=== PATIENT | male | born 1990 | race Caucasian/White ===

== ENCOUNTER 2017-01-24 17:13 | Inpatient (IN) | payer OTHER ==
--- NOTE | 2017-01-22 08:49 | BGECT ---
[f rep st] OUTPATIENT ECT Amended report DATE OF SERVICE: 01/20/[address] PL[address] OF EVALUATION: [facility]. PRESENT FOR EVALUATION: The patient, his mother and stepfather. Mother's phone number is [phone]. SOURCE OF INFORMATION: Personal interview with patient and his parents, one to one interview with patient's mother, letter of referral from patient's outpatient psychiatrist, Dr. Terry Mcdonough, clinic notes from Dr. Mcdonough dated October 16, 2015; December 14, 2015 and January 02, 2017, and a phone message from Dr. Mcdonough on January 20, 2017. TIME SPENT: 180 minutes. REASON FOR EVALUATION: Patient is a 26-year-old male with a history of schizoaffective disorder. He is referred by Dr. Mcdonough, who has treated him for the past 9 years. He is present with his mother who gives the majority of the history as the patient is somewhat disorganized and has a lot of negative perseverations especially in regard to his history. He clearly sees any discussion of his mental illness as embarrassing or negative and he resists talking about things. He is especially sensitive about psychotic symptoms, or any of his past behaviors that he might perceive as embarrassing. I am able to obtain some information after the patient leaves the evaluation at the end, when his mother is here by herself. They all repeat report that his first symptoms began approximately 9 years ago. His mother states that he was very ill at that time and had 2 long-term hospitalizations. She states that after this, he was stabilized on Clozaril and by her report "improved consistently for 8 years." Last summer, however, she states that in September of 2015, he began to decline. She states that he had a significant change in his behaviors and became impulsive and disorganized. She states that he was manic and would not sleep for days at a time. He was pressured and neurotic and demonstrated disorganized thoughts. In September and October, he left the home numerous times and she would have to drive around town looking for him. She would find him in a cataleptic state, standing in 1 position in a neighbors lawn or a park and have to bring him home. He was actively managed as an outpatient during this time, but then ultimately was hospitalized in November of 2015. At that time, he was given additional Risperdal which seemed to help and she states that he recovered largely. 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 She reports that again in October of this year, she noticed that he was again becoming somewhat elevated. She states that he was again pressured and sleeping less well. His thoughts would become disorganized and he began describing some visual misperceptions such as seeing people who were not there or having to seemingly clear his vision as if he had seen something. She states that he had become more impulsive and clingy, having to touch her frequently and needing frequent reassurances that he had not done anything wrong. She also notes that he began showering frequently and will sometimes shower twice a day for over an hour at a time. He reports hearing voices on a daily basis, but insists that "they are always good and not bad." His mother states that he does seem to attend to internal stimuli and that he will at times even make verbalizations as if he is talking to someone. She also notes that he will become paranoid at times, believing that people are watching him or that others behaviors in public are directed at him. She notes some other ideas of reference that are similar such as when he is in public, believing that others are orchestrating something against him. She states that his catatonic symptoms have come back several times where he will "get stuck" and seemed to freeze up for periods of 5-10 minutes. She states that this then gradually wears off and he is better able to function normally. In the past, he has demonstrated these similar behaviors when he decompensated a year ago. She states that at that time, he was very impulsive as mentioned above when he would leave the home, but also was disrobing and demonstrating inappropriate behaviors in public. Dr. Mcdonough's notes indicate that he did stabilize last summer over a period of about 4 months, and that he had been well until sometime between the and 17 of January, when he felt that he was noticing significant decompensation. Dr. Mcdonough had been actively adjusting his clozapine, had gotten up to his current dose of 600 mg with a serum level of almost 1000. He also added Risperdal and increased to 2 mg in combination with his Lamictal and lithium. These interventions did not curb these behaviors and they seem to be worsening. PAST PSYCHIATRIC HISTORY: Significant for seeing Dr. Mcdonough for the past 8-9 years. He has had 3 previous psychiatric hospitalizations with the last in November of 2015. He has previously tried Zyprexa, Risperdal, Depakote, Seroquel , lithium, Geodon, Invega and Lamictal. 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 CURRENT PSYCHIATRIC REVIEW OF SYSTEMS: The patient's states his sleep is currently stable with his medicines, though his mother is not convinced that he is sleeping well at all. His energy level is increased with frequent pacing and inability to sit still. He walks over 6 miles a day and states this is the only thing that helps calm him. His thoughts have been disorganized with some perseveration and repeating himself or repeating what others say to him. His mother states that he is not at baseline and that prior to the decompensation a year ago, function nearly normally. He admits to having decreased appetite and has lost 15 pounds in the past 2 weeks. His mother states that he complains of being unable to swallow at times and is unclear whether this is psychological related to anxiety or whether it is part of his "getting stuck." ALLERGIES: No known medical allergies. CURRENT MEDICATIONS: Clozaril 600 mg at h.s., Lamictal 200 mg at h.s., Risperdal 2 mg at h.s. and lithium 900 mg at h.s. PAST MEDICAL HISTORY: Significant for some sudden swelling of his feet when he was an adolescent, though it was diagnosed as gout that has not returned. The patient denies any other acute medical problems. 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 PAST SURGICAL HISTORY: Patient had a hernia repair as an and wisdom teeth extraction. Both times he received general anesthetic without complication. 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 He received early physical and occupational therapies, but these ended by the time he was in school. She states that he continued to have some sensory sensitivities after that, however. The patient has been tested with a normal IQ between 100 and 110. He is a high school graduate. SOCIAL HISTORY: Patient lives with his mother, stepfather and brother. He works at [employer] and has held this job for 9 years. 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 He also receives Social Security disability income. He actually bought a house with his brother that is closer to his work in [place], but has never moved in there as the plan to move in there occurred right as he decompensated last year. They still own the house and the ultimate goal is for he and his brother to move in there and live independently. The patient is described as being very dependent on routines and does not tolerate changes in this well at all. He also has trouble learning new things or adapting to any changes in his routine. He enjoys reading, drawing and watching movies. His mother states that he memorizes lines from movies and often recites then. SUBSTANCE ABUSE HISTORY: The patient has no history of substance abuse including no tobacco use. FAMILY HISTORY: Significant for multiple first and second-degree family members with serious psychiatric illness. Patient's twin brother is also diagnosed with schizoaffective disorder, and his sister is diagnosed with chronic insomnia, that is responsive only to Clozaril. He had an older brother who was diagnosed with schizoaffective disorder in his early 20s and committed suicide at 22 due to a response to his psychotic processes. The patient's maternal grandmother developed schizophrenia in her 40s and he has multiple first cousins with autism, mood disorder or schizophrenia. MENTAL STATUS EXAMINATION: Reveals a healthy-looking male. He is adequately groomed, though his hair is somewhat mussed and he is unshaven. He is noted to be sitting in the lobby by himself away from his parents and has a rather odd posture and facial expression. He is sitting staring with his mouth open and appears to be inattentive. When I approach him, however he smiles broadly and acknowledges me standing up and shaking my hand. Throughout the interview, however, he does not change this facial expression. He describes his mood as "just fine." He gives assurances throughout the interview that he feels well and that he is doing very well and that he has no mental illness. He is cooperative, though defensive especially when his mother attempts to talk about any of his past symptoms or any of his past behaviors. He frequently pats her on the arm or leg and states that he does not want to worry her and that he will never do any of those things again. He displays a moderate level of psychomotor agitation having difficulty sitting still. He will sit on the edge of the couch and fidget seeming to try to stand up at times, but then choosing not to. He has no evidence of tremors or extrapyramidal side effects. He will attempt to control the conversation and take it in tangential directions at times, especially when there was a discussion of his psychotic symptoms. At several points during the evaluation, he clearly attempts to conclude the evaluation, thank me for my time and suggest it is time to leave. He is redirected by his mother and stays seated during these times. Eventually , however, he does leave stating he has to go to the bathroom after over an hour in the office. He leaves with his stepfather and I spend the rest of the session with his mother. The patient's speech is fluent with some dysphonia, though no aphasia. It is somewhat pressured at times. His thought process is tangential with some perseveration on themes of his work, his routines, his hobbies and his desire to please his mother. He is alert and oriented to person , place, time, and situation, and his sensorium is clear. His memories appear to be intact in all spheres. His attention and concentration are marginal. His thought content reveals the paranoia and ideas of reference mentioned above and auditory hallucinations of "good voices." His intellect appears to be average to low average as evidenced by his educational and occupational history , fund of knowledge, and vocabulary. He denies any thoughts of suicide, homicide or violence. His insight and judgment appear to be fair to good. IMPRESSION: Patient is a 26-year-old male with a history of schizoaffective disorder. On initial observation, he appears to possibly have some developmental issues though his mother who is a registration scheduling specialist, assures me this is not the case. She states that when he is normal and at baseline, that he does not appear this way. She states that this is not his normal presentation and that he is functioning much lower than he typically does. The patient is able to discuss the potential treatments including the options for medication management and/or ECT. He voices a desire to proceed with ECT, stating that he believes that it could be helpful to him after we discussed at length the symptoms that might be addressed. Specifically, I indicated to them that this protracted alexandre which seems to lead to an overall decrease in his functioning and increase in his disorganization appears to be one of the primary addressable symptom. I emphasized repeatedly to the patient and his mother that the psychotic symptoms are less approachable with ECT, but that I would expect for them to improve by virtue of decreasing the influence of the alexandre on the symptoms, improving his restorative sleep and possibly helping the clozapine to work better. I voiced concern that he is on a very high level of clozapine and also taking lithium, Lamictal and Risperdal and that will need to do a full medical evaluation including EEG prior to consideration of moving forward. The patient and his mother voiced an understanding of this. I proceeded with standard discussion of the risks, benefits, and alternatives of ECT to provide informed consent. The patient's mother indicates to me that the patient has provided informed consent for all medical treatments in the past and he is intellectually normal. I discussed with him again that the goal for treatment would be to address the persistent alexandre. I believe that he has no absolutely contraindicating medical issues that will need to evaluate his cardiac status carefully. I have discussed the main alternative to ECT being intensive medication changes as the clozapine is maximized and it will be difficult to add much more antipsychotic influence to the mix given his high dose at this point. He could consider a washout, but that given his current level of instability, I believe that this would be unwise. I provide no estimation of the likelihood of response to ECT, though I have stated to them that ECT can be very helpful for alexandre and I believe that there is a significant chance of benefit. I have discussed the course of ECT, including the acute course occurring on a Friday, Friday, Friday basis here at [facility]. I have discussed the typical range of treatments for depression being between 9 and 12 and that it is possible he would have fewer treatments for the alexandre, though there is no way of knowing this until we begin. The patient then states that he would do 4 treatments and I indicated again that it would be impossible to assume before we start how many treatments would be required and that we would have to determine this as we went along. The patient states he understands this. I also emphasized that there is no guarantee the ECT will be effective. We reviewed the extremely rare, rare, uncommon, and common side effects with ECT including major risks such as occurring in 1 in 10,000 and severe risks of cardiovascular and central nervous systems that are possible. I discussed the common side effects such as nausea, headaches, and agitation. I have discussed the possibility that he could have increased confusion or even delirium with lithium and that we could have to possibly hold this during treatment if he had any difficulties. Particular time was spent discussing the potential transient and persistent cognitive side effects of ECT. Side effects such as the anterograde, retrograde and autobiographical memory deficiencies were reviewed. I also discussed problems with working memory, and the impact of this on his daily functioning. I emphasized that he would not be able to work during the acute course of ECT. The patient understands the behavior restrictions requisite with ECT including n.p.o. requirements and timeframes, 24-hour monitoring on treatment days and inability for him to take the bus across town without someone accompanying him due to the potential for him to get lost or confused. We also reviewed the possibility of medication changes specifically decreasing doses and/or numbers of medications during the course of treatment if he was having a positive response. The patient and mother are given a packet of ECT educational materials and instructed to call with any questions. They were supplied with my personal contact information including e-mail and informed that e-mail is most efficient means of contact. The patient is given a list of ECT staff including names, titles and roles and Sandi García is identified as the primary point of contact. All in all, I believe the patient is a good candidate for ECT primarily to address the persistent alexandre and emerging catatonia. I am fearful that if the catatonia worsens in the presence of high-dose antipsychotics, that we could quickly get behind the curve and he would require emergent ECT and medication changes. If we are able to intervene at this point, he may experience a resolution of the alexandre, decreasing his risk for catatonia and promoting a return to normal functioning. I will discuss the case with Sandi García and the patient and his family will decide if they want to proceed. If so, we will obtain the medical clearance and hope to begin acute course treatment as soon as possible. I have also indicated to them that regardless of whether he proceeds with ECT, I would like to get the EKG done as soon as possible to be able to evaluate his QTc. /[id number]/MODL Add acc#, 01/30/17, krystina CHEEK
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
[2017-01-24 18:13] LABS: % IMMATURE GRANULYOCYTES 0.1 % (0.0-1.1); ABSOLUTE IMMATURE GRANULOCYTES 0.01 10^3/uL (0.00-0.10); ADD DIFF? NO; ADD MORPH? NO; ADD SCAN? NO; ATYPICAL LYMPHOCYTE FLAG 0 (0-99); FRAGMENT RBC FLAG 0 (0-99); HEMATOCRIT 46.2 % (40.0-51.0); HEMOGLOBIN 15.5 g/dL (13.7-17.5); LEFT SHIFT FLG 0 (0-99); LIPEMIA HEMOLYSIS FLAG 80 (0-99); MEAN CELL HEMOGLOBIN 30.9 pg (27.9-34.1); MEAN CELL HEMOGLOBIN CONCENTR. 33.5 g/dL (32.4-36.7); MEAN CELL VOLUME 92.2 fL (81.5-99.8); MEAN PLATELET VOLUME 9.7 fL (8.7-11.7); PLATELET CLUMPS FLAG 0 (0-99); PLATELET COUNT 132 10^3/uL (150-400); RED BLOOD CELL COUNT 5.01 10^6/uL (4.40-6.38); RED CELL DISTRIBUTION WIDTH 13.1 % (11.5-15.2)
[2017-01-24 18:42] LABS: ANION GAP 16 mEq/L (8-16); CARBON DIOXIDE 23 mEq/l (22-31); CHLORIDE 101 mEq/L (97-110); ETHANOL SERUM < 10 mg/dL (0-10); GLOMERULAR FILTRATION RATE > 60; GLUCOSE 105 mg/dL (70-100); POTASSIUM 3.9 mEq/L (3.5-5.2); SALICYLATE < 1.0 mg/dL (2.0-20.0); SODIUM 140 mEq/L (134-144)
[2017-01-24] MEDS ORDERED: MAG HYDROX/AL HYDROX/SIMETH 30 ML UDCUP PO PRN (20:59)
[2017-01-24] MEDS ORDERED: MAGNESIUM HYDROXIDE 30 ML UDCUP PO PRN (20:59)
[2017-01-24] MEDS ORDERED: LORazepam 1 MG TAB PO PRN (20:59)
[2017-01-24] MEDS ORDERED: ACETAMINOPHEN 325 MG TAB PO PRN (21:00)
[2017-01-24] MEDS: lamoTRIgine 100 MG TAB PO SCH (21:11)
[2017-01-24] MEDS: risperiDONE 2 MG TAB PO SCH (21:11)
[2017-01-24] MEDS: LITHIUM CARBONATE ER 450 MG TAB PO SCH (21:11)
[2017-01-24] MEDS: cloZAPine 100 MG TAB PO SCH (21:11)
--- NOTE | 2017-01-25 15:05 | BAPA ---
[f rep st] ADMISSION PSYCHIATRIC ASSESSMENT DATE OF SERVICE: 01/25/2017 CHIEF COMPLAINT: The patient was running into traffic, and police and fire were involved. HISTORY OF PRESENT ILLNESS: This is a 26-year-old male with a history of schizoaffective disorder, p rior ECT treatment, arrived via private vehicle with mother and sister, after being evaluated by Dr. Dove, and recommended he come to the ER for admission to inpatient behavioral health on 3 , o anthony concerns due to danger to self. Mother states that the patient ran into traffic naked yesterday, police and fire were involved. She is concerned about suicidal ideation, though he has not explicit ly admitted SI, he does have a prior history of suicide attempts, a prior history by hanging. The pa shane was placed on a M1 hold after evaluation in the emergency department. The M1 hold states "ny saucedo brought in by his mother, for repeatedly running nude into the street, up to 10 times yesterday, today on the way to a restaurant, patient beginning to undress again, mother brought him here. Stephan mcnally is gravely disabled and a danger to himself." The patient was evaluated on 01/20/[address] Josselin Dove, he was referred by Dr. Mcdonough, who has treated him for the past 9 years. He presen ts with his mother, who gives the majority of the history, as the patient is somewhat disorganized, a nd has a lot of negative perseverations, especially in regard to his history. According to Dr. Brito rn's notes, the patient is "especially sensitive about psychotic symptoms, or any of his past behavio rs, that he might perceive as embarrassing." Again, according to Dr. Dove's evaluation, the stephan mcnally's first symptoms began approximately 9 years ago. His mother states that he was very ill at the [facility] and two long-term hospitalizations, after this he was stabilized on Clozaril, and by her report improved over the last 8 years. Last summer, however, she states, he began to decline, he had a significant c hange in behaviors and became impulsive and disorganized. She states that he was manic and would not sleep for days at a time. He was pressured and neurotic, and demonstrated disorganized thoughts. Alida murillo left home numerous times and parents would have to drive around looking for him. She would find humphrey dunbar in a catatonic state, standing in one position on a neighbors lawn, or in a park. He was actively managed as an outpatient, though, he was hospitalized in November of 2015, he was given Risperdal, in addition to mood stabilizers, which seemed to help. 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 Again in October of 2016, his mood was becoming somewhat elevated, he had pressured speech, and decrease d need for sleep, his thoughts would become more disorganized. He reports some visual disturbances, including seeing people who were not there. The patient also began showering more frequently, someti mes twice a day, for over an hour at a time. He acknowledged that he was hearing voices, but says "t hey are always good and not bad." Mother and family did notice that the patient was attending to int ernal stimuli. He was also more paranoid, believing that people were watching him, he had ideas of r eference that other people in public behaviors were directed at him. Mother notes that the patient e xhibited catatonic symptoms several times when he would appear to "get stuck" and seemed to freeze up for 5-10 minutes. She stated that the catatonia would gradually wear off, and he was able to functi on normally. Sometimes he would leave home, was also disrobing in public, and demonstrating inapprop riate behaviors. According to Dr. Mcdonough's notes, the patient did seem to stabilize over the summer and did well up until about the middle of December. Dr. Mcdonough has been adjusting his Clozaril do se, he has gotten up to his current dose of 600 mg, with a serum level of almost 1000. He also added Risperdal and increased to 2 mg in combination with his Lamictal and lithium, these interventions di d not curb the patient's behaviors, and his psychotic symptoms seem to be worsening. On the [facility], the patient does appear to be internally preoccupied. He has paucity of sp eech. Difficult to engage in conversation. He does not say more than a few words. He appears very disorganized, is not completely aware of his surroundings. Does not interact with peers or with staf f, isolates. He is occasionally pacing the hallway, looking down at the ground, does not make eye co ntact and appears to be mumbling to himself at times. When MD does attempt to engage him in conversa tion, he is very distractible, and seems to be responding to internal stimuli, and only gives monosyl labic responses to questions, does not have very spontaneous speech. 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 PAST PSYCHIATRIC HISTORY: Much of the psychiatric history is provided in the HPI, based upon Dr. Amos cheney's interview with the patient's mother, as well as information provided by Dr. Mcdonough, the patient's [facility] psychiatrist. As noted, Dr. Mcdonough has been adjusting his medications over the last severa l weeks, increasing his Clozaril up to 600 mg, adding Risperdal to 2 mg, in combination with Lomotil and lithium. The patient has had 3 previous psychiatric hospitalizations, including most recently in November. He has previously been tried on Zyprexa, Risperdal, Depakote, Seroquel, lithium, Geodon, Invega a nd Lamictal. Despite his history of catatonia, he has had no previous trials, nor has he received an y previous recommendations for ECT. ALLERGIES: The patient has no known drug allergies. CURRENT MEDICATIONS: Clozaril 600 mg p.o. at q.h.s., Lamictal 200 mg p.o. q.h.s., Risperdal 2 mg p.o . q.h.s., and lithium 900 mg p.o. q.h.s. PAST MEDICAL HISTORY: The patient had sudden swelling of his feet when he was an adolescent, it was diagnosed as gout and has not returned since then. The patient denies any other acute problems. He has a history of West Nile virus when he was in high school, without encephalopathy. PAST SURGICAL HISTORY: The patient had a hernia repair as an , and wisdom teeth extraction. SOCIAL HISTORY: Again referring to Dr. Dove's outpatient evaluation. The patient lives with moth er, stepfather, and a brother. He works at [employer] and has held this job for 9 years. 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 He receives social sec urity disability. He actually bought a house with his brother, to be closer to his job in [employer], but has not moved in there due to the severe decompensation and worsening of his symptoms over e past year. According to mother, the patient enjoys reading, drawing, and watching movies. Mother states that he memorizes lines from movies and often recites them. SUBSTANCE USE HISTORY: Patient has no known history of substance use, including no tobacco use. FAMILY HISTORY: Mother reports that the patient has multiple family members with serious psychiatric illness. His twin brother is also diagnosed with schizoaffective disorder. His sister has been rebecca gnosed with chronic insomnia, that is being treated with Clozaril. He had an older brother, who was diagnosed with schizoaffective disorder in his early 20s, and committed suicide at 22. The patient's maternal grandmother developed schizophrenia in her 40s, and he has multiple cousins with autism, mo od disorder or schizophrenia. LABORATORY DATA: Admission labs were done in the emergency department. His white cell count was 6.8 6, his hemoglobin was 15.5, hematocrit was 46.2, platelet count was 132, his absolute neutrophils wer e 5.07. His sodium was 140, potassium 3.9, chloride 101, BUN 11, creatinine 1.0, glucose 105, calciu m 10. His tox screen was negative for all drugs of abuse. Ethyl alcohol level was less than 10. Hi s salicylate and acetaminophen levels were both undetected. MENTAL STATUS EXAMINATION: As previously described, the patient is a well developed, somewhat thin, man, wearing baggy shorts, and a hoddy, walking slowly down the feliz, staring at the ground , appearing to respond to internal stimuli. He is only oriented to person, his affect is blunted. H e does not respond when asked to describe his mood. His thought process is disorganized. He is note d to be mumbling to himself. His thought content, he appears to be obviously responding to internal stimuli and highly disorganized and distractible. There are no signs or symptoms of alexandre at the current time. He does not have pressured speech, racing thought s, elevated or elated mood, or grandiose delusions. He is not endorsing any SI or HI at the current time, though yesterday, he was running out into the street naked, this appears to be more related to his psychotic and disorganized thought process, than to any intent to intentionally harm himself. At least based on the mother's report in the ED, he was not voicing any thoughts or plans or intent to harm himself directly, even though the behavior he was engaging was reckless and impulsive. He state s that the only voices he hears are "good ones." His intellect appears to be below average, based up on his fund of knowledge and vocabulary, as well as prior evidence of educational and occupational hi story, mostly provided by the mom and the family. His insight and judgment are both impaired at the current time. ASSESSMENT: 1. Schizoaffective disorder, bipolar type. 2. Psychosocial stressors include multiple family members with serious mental health problems, sever e decompensation over the past year, which is making it difficult for patient to maintain his daily r outine, including doing his work and living independently. He has been dependent on his family to alexander pervise and monitor him, almost on a daily basis over the past year. He is currently on disability. PLAN: 1. Admit the patient to the inpatient Behavioral Health Services Unit on an M1 hold. 2. Monitor closely for safety and on suicide precautions. 3. We will resume his current outpatient medications, which have all been ordered by kelsi Frenchr to his admission from the ED. He has some p.r.n. medications including Ativan if needed. He is not currently exhibiting signs or symptoms of catatonia, he is not agitated or anxious. 4. We will engage patient in individual, group, and milieu therapies to the degree that is possible and appropriate, given his current state of mind and his orientation. 5. Estimated length of stay is 5-7 days. Patient will undergo ECT treatment starting on Friday01/27/2017. We will continue to follow and monitor the patient's progress after he begins his course of ECT treatments. /[id number]/MODL
--- NOTE | 2017-01-25 18:21 | BCON ---
[f rep st] BEHAVIORAL HEALTH CONSULTATION DATE OF CONSULTATION: 01/25/2017 REFERRING PHYSICIAN: Sly Dove MD REASON FOR REFERRAL: Medical clearance for inpatient behavioral health stay. HISTORY OF PRESENT ILLNESS: This patient was brought to the [facility] Emergency Department on an M1 hold by police. He has had increasingly difficult behavior over a period of months after having been stable on psychiatric medications for a period of years. Ultimately, he was taking his clothes off and running in traffic, and so was brought to the emergency department. He was evaluated by the mental health team and admitted for further psychiatric care. He currently is without any acute complaints. PAST MEDICAL HISTORY: 1. Schizoaffective disorder. 2. 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 3. West Nile virus. PAST SURGICAL HISTORY: He reports a history of a surgery when he was an infant , but does not know what it was. MEDICATIONS: Prior to admission: 1. Lamotrigine 200 mg p.o. q.h.s. 2. Pena 900 mg p.o. q.h.s. 3. Clozapine 600 mg p.o. q.h.s. SOCIAL HISTORY: He is living with his parents. He is a nonsmoker. Does not use alcohol or other drugs of abuse. He has worked 24 hours a week at [employer]. FAMILY HISTORY: Significant for mental illness in multiple members. REVIEW OF SYSTEMS: He denies weight change, fevers, chills, cough, dyspnea, nausea, vomiting, constipation, and diarrhea. He reports a good appetite. He denies dysuria and urinary frequency. He denies joint pain and joint swelling. He denies skin rash and skin breakdown, but does report that he has been shaving the back of his own neck and has some excoriations there. Otherwise, a 10-point review of systems is negative. PHYSICAL EXAMINATION: VITAL SIGNS: Blood pressure is 126/72, heart rate is 107 , respiratory rate is 14, oxygen saturation 98% on room air, temperature is 36.9 degrees centigrade. His weight is 81.6 kg for a body mass index of 23.7. GENERAL: This is a well-nourished, well-developed man, who appears his chronologic age, cooperative and in no acute distress. HEENT: Extraocular movements are intact. Pupils are equal, round, and reactive to light. Mucous membranes are moist. Dentition is in good condition. He has mild swelling and erythema to the uvula and soft palate. He has an uncrowded airway, Mallampati class 1. NECK: Supple. HEART: Regular rate and rhythm with no murmurs, rubs , or gallops. LUNGS: Clear to auscultation bilaterally. ABDOMEN: Soft, nontender, nondistended with normoactive bowel sounds. EXTREMITIES: No cyanosis, clubbing, or edema. NEUROLOGIC: Alert and oriented x3. Cranial nerves 2 through 12 are grossly intact. There is no focal weakness. Sensation is intact to light touch. Gait is within normal limits. SKIN: He has very mild superficial lacerations of about half a centimeter each along his right posterior neck with no erythema or purulence. There is no eschar. LABORATORY DATA: Studies drawn in the emergency department show CBC revealing a low platelet count at 132, otherwise was within normal limits. Serum chemistry showed normal renal function and electrolytes. Glucose was slightly elevated at 105, but this was likely not fasting. Toxicology screen in the serum was negative for salicylates, acetaminophen, and ethyl alcohol, and the urine was negative for any substance of abuse. ASSESSMENT/RECOMMENDATIONS: 1. Mental health issues pending further evaluation and management per Psychiatry and the mental health team. 2. Superficial lacerations due to shaving his own neck. There is no indication for any further evaluation or treatment. These will heal spontaneously. 3. Thrombocytopenia. His platelet count is not low enough to cause any bleeding risk. Platelet numbers can be fairly labile. There is no sign otherwise of any bone marrow suppression. Advise followup testing after discharge per primary care. /[id number]/MODL MTDD
[2017-01-25] MEDS: LITHIUM CARBONATE ER 450 MG TAB PO SCH (19:56)
[2017-01-25] MEDS: lamoTRIgine 100 MG TAB PO SCH (19:58)
[2017-01-25] MEDS: cloZAPine 100 MG TAB PO SCH (19:58)
[2017-01-25] MEDS: risperiDONE 2 MG TAB PO SCH (19:58)
--- NOTE | 2017-01-26 13:10 | SOAPPROG ---
[place] Progress Note Assessment/Plan: Assessment: 01/26/17 13:07 1. CCM - patient is stable, not as psychotic or manic today 2. ECT scheduled tomorrow Subjective: Patient has brighter affect today, is smiling, very polite in conversation. He is less avoidant and makes better eye contact with MD. He asks some appropriate questions about ECT tomorrows and MD answers them. He denies any SI/HI. Does not appear to be responding to IS like yesterday, not talking to himself. More engaged and less w/d, is actually sitting in common area reading newspaper. Objective: Vital Signs Temp Pulse Resp BP Pulse Ox 36.7 C 106 H 14 119/70 100 01/26/17 06:00 01/26/17 06:00 01/26/17 06:00 01/26/17 06:00 01/26/17 06:00 MSE: Affect: Euthymic Mood: "Good, how about you?" TP: Logical, linear TC: No RIS, no AH/VH, no paranoia, appears less delusional, denies any SI/HI Insight/Judgment: Poor - Time Spent With Patient Time Spent With Patient: 20" - Pending Discharge Pending Discharge Within 24 Hours: No Pending Discharge Within 48 Hours: No ICD10 Worksheet Patient Problems: Problems Problem Status Onset Psychosis Acute Schizoaffective disorder Acute
[2017-01-26] MEDS: LITHIUM CARBONATE ER 450 MG TAB PO SCH ×2 (19:07→19:10)
[2017-01-26] MEDS: cloZAPine 100 MG TAB PO SCH (19:07)
[2017-01-26] MEDS: risperiDONE 2 MG TAB PO SCH (19:08)
[2017-01-26] MEDS: lamoTRIgine 100 MG TAB PO SCH (19:09)
[2017-01-27] MEDS ORDERED: NS 1,000 ML IV ONE (00:13)
[2017-01-27] MEDS ORDERED: ONDANSETRON DISINTEGRATING 4 MG TAB PO ONE (00:13)
[2017-01-27] MEDS ORDERED: CITRIC ACID/SODIUM CITRATE 30 ML UDCUP PO ONE (00:13)
[2017-01-27] MEDS ORDERED: LIDOCAINE 2% 5 ML SDV ID ONE (00:13)
[2017-01-27] MEDS ORDERED: fentaNYL 100 MCG/2 ML INJ ONE (06:02)
[2017-01-27] MEDS ORDERED: MIDAZOLAM 2 MG/2 ML VIAL ONE (06:02)
[2017-01-27] MEDS ORDERED: ETOMIDATE 20 MG/10 ML VIAL ONE (06:03)
[2017-01-27] MEDS ORDERED: ROCURONIUM 50 MG/5 ML VIAL ONE (06:03)
[2017-01-27] MEDS ORDERED: SUCCINYLCHOLINE CHLORIDE 200 MG/10 ML VIAL ONE (06:03)
[2017-01-27] MEDS ORDERED: ONDANSETRON 4 MG/2 ML VIAL ONE (06:03)
[2017-01-27] MEDS ORDERED: GLYCOPYRROLATE 0.2 MG/1 ML VIAL ONE (06:03)
[2017-01-27] MEDS ORDERED: ONDANSETRON DISINTEGRATING 4 MG TAB ONE (06:45)
[2017-01-27] MEDS ORDERED: CITRIC ACID/SODIUM CITRATE 30 ML UDCUP ONE (06:46)
--- NOTE | 2017-01-27 08:07 | SOAPPROG ---
SOAP Progress Note Assessment/Plan: Assessment: Plan: 01/27/17 08:06 Protracted alexandre persists. Will proceed with acute course ECT. Subjective: Pt seen, discussed with staff. He is a 26 y/o CM with hx of SA D/o. I saw him in an outpt ECT eval last week and he he continued to decompensate with intractable alexandre. His behaviors are unsafe, leaving the home and running around outside naked requiring inpatient admission. He has been cooperative here. He underwent RUL UBP ECT this morning without complication. Objective: Vital Signs Temp Pulse Resp BP Pulse Ox 36.9 C 108 H 14 127/77 H 100 01/27/17 06:00 01/27/17 06:00 01/27/17 06:00 01/27/17 06:00 01/27/17 06:00 MSE: Calm, coop. Affect is blunted, stable. Mood is "OK." TP linear. TC reveals no overt psychosis. Denies SI/HI/. - Time Spent With Patient Time Spent With Patient: 35" ICD10 Worksheet Patient Problems: Problems Problem Status Onset Psychosis Acute Schizoaffective disorder Acute
[2017-01-27] MEDS ORDERED: ACETAMINOPHEN 325 MG TAB ONE (08:30)
--- NOTE | 2017-01-27 15:49 | SOAPPROG ---
SOAP Progress Note Assessment/Plan: Assessment: Met with patient. Patient denies side effects from ECT. Unable to explain why he was in the hospital or what his previous diagnosis was. Reports feeling improved from previous and denies SI or HI. Patient is illogical with euphoric affect and unable to explain where he would obtain half-way or food if discharged, and is on M-1 hold for grave disability after having manic symptoms and running through streets naked. Filled out Short Term Certification to ensure patient stays on unit for appropriate monitoring and treatment and discharge planning. Patient appears to have continued manic symptoms and disorganization. 01/27/17 15:44 Objective: Vital Signs Temp Pulse Resp BP Pulse Ox 36.7 C 95 15 119/78 97 01/27/17 08:39 01/27/17 11:10 01/27/17 11:10 01/27/17 11:10 01/27/17 11:10 ICD10 Worksheet Patient Problems: Problems Problem Status Onset Psychosis Acute Schizoaffective disorder Acute
[2017-01-27] MEDS: lamoTRIgine 100 MG TAB PO SCH (21:24)
[2017-01-27] MEDS: LITHIUM CARBONATE ER 450 MG TAB PO SCH (21:24)
[2017-01-27] MEDS: cloZAPine 100 MG TAB PO SCH (21:24)
[2017-01-27] MEDS: risperiDONE 2 MG TAB PO SCH (21:25)
--- NOTE | 2017-01-28 12:34 | SOAPPROG ---
SOAP Progress Note Assessment/Plan: Assessment: Plan: 01/27/17 08:06 Protracted alexandre persists. Will proceed with acute course ECT. 01/28/17 12:34 Improving. [facility]: acute course ECT. Subjective: Pt seen, discussed with staff, chart reviewed. He is upbeat and pleasant on unit. He is participating to the extent of his ability in groups. He tolerated ECT well with some h/a and nausea after treatment. States he is " much more hopeful that ECT will help me." Agreeable to staying in the hospital for treatment. Behaviors are stable with no aggression of disrobing. Eating and sleeping adequately. Objective: Vital Signs Temp Pulse Resp BP Pulse Ox 36.8 C 101 H 16 118/70 100 01/28/17 06:00 01/28/17 06:00 01/28/17 06:00 01/28/17 06:00 01/28/17 06:00 - Time Spent With Patient Time Spent With Patient: 35" ICD10 Worksheet Patient Problems: Problems Problem Status Onset Psychosis Acute Schizoaffective disorder Acute
[2017-01-28] MEDS: cloZAPine 100 MG TAB PO SCH (16:28)
[2017-01-28] MEDS: LITHIUM CARBONATE ER 450 MG TAB PO SCH (16:28)
[2017-01-28] MEDS: risperiDONE 2 MG TAB PO SCH (16:28)
[2017-01-28] MEDS: lamoTRIgine 100 MG TAB PO SCH (16:29)
[2017-01-29] MEDS ORDERED: MIDAZOLAM 2 MG/2 ML VIAL ONE (05:42)
[2017-01-29] MEDS ORDERED: PROPOFOL 200 MG/20 ML VIAL ONE (05:42)
[2017-01-29] MEDS ORDERED: KETOROLAC 30 MG/1 ML SDV ONE (05:42)
[2017-01-29] MEDS ORDERED: ETOMIDATE 20 MG/10 ML VIAL ONE (05:42)
[2017-01-29] MEDS ORDERED: fentaNYL 100 MCG/2 ML INJ ONE (05:42)
[2017-01-29] MEDS ORDERED: ONDANSETRON 4 MG/2 ML VIAL ONE (05:42)
[2017-01-29] MEDS ORDERED: GLYCOPYRROLATE 0.2 MG/1 ML VIAL ONE (05:42)
[2017-01-29] MEDS ORDERED: ROCURONIUM 50 MG/5 ML VIAL ONE (05:43)
[2017-01-29] MEDS ORDERED: SUCCINYLCHOLINE CHLORIDE 200 MG/10 ML VIAL ONE (05:43)
[2017-01-29] MEDS ORDERED: ONDANSETRON DISINTEGRATING 4 MG TAB ONE (06:34)
[2017-01-29] MEDS ORDERED: CITRIC ACID/SODIUM CITRATE 30 ML UDCUP ONE (06:34)
--- NOTE | 2017-01-29 16:06 | SOAPPROG ---
SOAP Progress Note Assessment/Plan: Assessment: Plan: 01/27/17 08:06 Protracted alexandre persists. Will proceed with acute course ECT. 01/28/17 12:34 Improving. [facility] inc: acute course ECT. 01/29/17 16:05 Continued improvement. [facility]. Subjective: Pt seen, discussed with staff. Reports feeling "a lot better" this morning. Cheerful and upbeat. He states he believes the ECT is helping him. He underwent RUL ECT treatment this morning without complication. Behaviors remains stable on unit. Objective: Vital Signs Temp Pulse Resp BP Pulse Ox 36.5 C 108 H 14 122/80 H 97 01/29/17 10:55 01/29/17 10:55 01/29/17 10:55 01/29/17 10:55 01/29/17 10:55 - Time Spent With Patient Time Spent With Patient: 35" ICD10 Worksheet Patient Problems: Problems Problem Status Onset Psychosis Acute Schizoaffective disorder Acute
[2017-01-29] MEDS: LITHIUM CARBONATE ER 450 MG TAB PO SCH (21:25)
[2017-01-29] MEDS: lamoTRIgine 100 MG TAB PO SCH (21:26)
[2017-01-29] MEDS: cloZAPine 100 MG TAB PO SCH (21:26)
[2017-01-29] MEDS: risperiDONE 2 MG TAB PO SCH (21:26)
--- NOTE | 2017-01-30 17:33 | SOAPPROG ---
[facility] Progress Note Assessment/Plan: Assessment: Plan: 01/27/17 08:06 Protracted alexandre persists. Will proceed with acute course ECT. 01/28/17 12:34 Improving. [facility] inc: acute course ECT. 01/29/17 16:05 Continued improvement. CCM. 01/30/17 17:33 Calmer. Tolerating ECT well. Will [facility], hope to keep pt in hospital through next week to insure stability. Subjective: Pt seen, discussed with staff. Reports feeling "good." States he believes the ECT is helping him. He notes no nausea or h/a. He states his mother wants him to come home tomorrow after treatment. I discussed this with her and she is afraid he will not be safe as he was so agitated before. Objective: Vital Signs Temp Pulse Resp BP Pulse Ox 37.1 C 110 H 14 117/67 95 01/30/17 06:00 01/30/17 06:00 01/30/17 06:00 01/30/17 06:00 01/30/17 06:00 MSE: Calm, coop. AFfect is bright, stable, approp. Mood is "good." TP linear. TC reveals no overt psychosis. Cognition is good. - Time Spent With Patient Time Spent With Patient: 35" ICD10 Worksheet Patient Problems: Problems Problem Status Onset Psychosis Acute Schizoaffective disorder Acute
[2017-01-30] MEDS: lamoTRIgine 100 MG TAB PO SCH (19:45)
[2017-01-30] MEDS: LITHIUM CARBONATE ER 450 MG TAB PO SCH (19:46)
[2017-01-30] MEDS: cloZAPine 100 MG TAB PO SCH (20:57)
[2017-01-30] MEDS: risperiDONE 2 MG TAB PO SCH (20:57)
[2017-01-31] MEDS ORDERED: ONDANSETRON DISINTEGRATING 4 MG TAB PO ONE (05:00)
[2017-01-31] MEDS ORDERED: LIDOCAINE 2% 5 ML SDV ID ONE (05:00)
[2017-01-31] MEDS ORDERED: NS 1,000 ML IV ONE (05:00)
[2017-01-31] MEDS ORDERED: CITRIC ACID/SODIUM CITRATE 30 ML UDCUP PO ONE (05:00)
[2017-01-31] MEDS ORDERED: MIDAZOLAM 2 MG/2 ML VIAL ONE (05:57)
[2017-01-31] MEDS ORDERED: ONDANSETRON 4 MG/2 ML VIAL ONE (05:57)
[2017-01-31] MEDS ORDERED: KETOROLAC 30 MG/1 ML SDV ONE (05:57)
[2017-01-31] MEDS ORDERED: fentaNYL 100 MCG/2 ML INJ ONE (05:57)
[2017-01-31] MEDS ORDERED: GLYCOPYRROLATE 0.2 MG/1 ML VIAL ONE (05:57)
[2017-01-31] MEDS ORDERED: SUCCINYLCHOLINE CHLORIDE 200 MG/10 ML VIAL ONE (05:58)
[2017-01-31] MEDS ORDERED: ROCURONIUM 50 MG/5 ML VIAL ONE (05:58)
[2017-01-31] MEDS ORDERED: ETOMIDATE 20 MG/10 ML VIAL ONE (05:58)
[2017-01-31] MEDS ORDERED: PROPOFOL 200 MG/20 ML VIAL ONE (05:58)
[2017-01-31] MEDS ORDERED: CITRIC ACID/SODIUM CITRATE 30 ML UDCUP ONE (07:05)
[2017-01-31] MEDS ORDERED: ONDANSETRON DISINTEGRATING 4 MG TAB ONE (07:05)
[2017-01-31] MEDS: cloZAPine 100 MG TAB PO SCH (20:51)
[2017-01-31] MEDS: lamoTRIgine 100 MG TAB PO SCH (20:52)
[2017-01-31] MEDS: risperiDONE 2 MG TAB PO SCH (20:52)
[2017-01-31] MEDS: LITHIUM CARBONATE ER 450 MG TAB PO SCH (20:52)
--- NOTE | 2017-02-01 12:50 | SOAPPROG ---
SOAP Progress Note Assessment/Plan: Assessment: Per Dr. Dove's note from 01/31/17: 01/27/17 08:06 Protracted alexandre persists. Will proceed with acute course ECT. 01/28/17 12:34 Improving. [facility] inc: acute course ECT. 01/29/17 16:05 Continued improvement. CCM. 01/30/17 17:33 Calmer. Tolerating ECT well. Will [facility], hope to keep pt in hospital through next week to insure stability. 02/01/17 12:47 1. No complaints or SE's from ECT. Doing better, calmer, polite and pleasant. 2. CCM Subjective: Met with patient, reviewed chart and discussed with staff. Patient has stayed in his room most of the morning, does not participate in groups, not present in milieu. However, he did come out for breakfast. He is very quiet, but extremely polite and pleasant. He denies any complaints and reports no SE's from ECT. Objective: Vital Signs Temp Pulse Resp BP Pulse Ox 36.4 C 105 H 14 102/59 L 96 02/01/17 06:00 02/01/17 06:00 02/01/17 06:00 02/01/17 06:00 02/01/17 06:00 MSE: Polite, pleasant, quiet. Affect: Constricted Mood: "OK" TP: Clearer, more coherent TC: Denies any SI/HI, no signs of psychosis. Insight/Judgment: Poor - Time Spent With Patient Time Spent With Patient: 15" - Pending Discharge Pending Discharge Within 24 Hours: No Pending Discharge Within 48 Hours: No ICD10 Worksheet Patient Problems: Problems Problem Status Onset Psychosis Acute Schizoaffective disorder Acute
[2017-02-01] MEDS: risperiDONE 2 MG TAB PO SCH (20:47)
[2017-02-01] MEDS: lamoTRIgine 100 MG TAB PO SCH (20:47)
[2017-02-01] MEDS: LITHIUM CARBONATE ER 450 MG TAB PO SCH (20:47)
[2017-02-01] MEDS: cloZAPine 100 MG TAB PO SCH (20:48)
--- NOTE | 2017-02-02 13:28 | SOAPPROG ---
SOAP Progress Note Assessment/Plan: Assessment: Per Dr. Dove's note from 01/31/17: 01/27/17 08:06 Protracted alexandre persists. Will proceed with acute course ECT. 01/28/17 12:34 Improving. [facility] inc: acute course ECT. 01/29/17 16:05 Continued improvement. CCM. 01/30/17 17:33 Calmer. Tolerating ECT well. Will CCM, hope to keep pt in hospital through next week to insure stability. 02/01/17 12:47 1. No complaints or SE's from ECT. Doing better, calmer, polite and pleasant. 2. CCM 02/02/17 13:26 1. Bright affect, still isolates in room. No change. 2. CCM - doing better Subjective: Patient is seated in his room eating lunch. He is pleasant, polite and cooperative. He says ECT is "helping" and he feels "better." No complaints. Objective: Vital Signs Temp Pulse Resp BP Pulse Ox 36.4 C 100 15 107/74 98 02/02/17 06:00 02/02/17 06:00 02/02/17 06:00 02/02/17 06:00 02/02/17 06:00 MSE: Pleasant, quiet, isolative. Affect: Brighter Mood: "Good" TP: More organized and linear TC: Denies any SI/HI Insight/Judgment: Fair - Time Spent With Patient Time Spent With Patient: 15" - Pending Discharge Pending Discharge Within 24 Hours: No Pending Discharge Within 48 Hours: No ICD10 Worksheet Patient Problems: Problems Problem Status Onset Psychosis Acute Schizoaffective disorder Acute
[2017-02-02] MEDS: cloZAPine 100 MG TAB PO SCH (16:50)
[2017-02-02] MEDS: risperiDONE 2 MG TAB PO SCH (16:50)
[2017-02-02] MEDS: LITHIUM CARBONATE ER 450 MG TAB PO SCH (16:50)
[2017-02-02] MEDS: lamoTRIgine 100 MG TAB PO SCH (16:50)
[2017-02-03] MEDS ORDERED: NS 1,000 ML IV ONE (05:21)
[2017-02-03] MEDS ORDERED: LIDOCAINE 2% 5 ML SDV ID ONE (05:21)
[2017-02-03] MEDS ORDERED: ONDANSETRON DISINTEGRATING 4 MG TAB PO ONE (05:21)
[2017-02-03] MEDS ORDERED: CITRIC ACID/SODIUM CITRATE 30 ML UDCUP PO ONE (05:21)
[2017-02-03] MEDS ORDERED: KETOROLAC 30 MG/1 ML SDV ONE (06:13)
[2017-02-03] MEDS ORDERED: MIDAZOLAM 2 MG/2 ML VIAL ONE (06:13)
[2017-02-03] MEDS ORDERED: fentaNYL 100 MCG/2 ML INJ ONE (06:13)
[2017-02-03] MEDS ORDERED: GLYCOPYRROLATE 0.2 MG/1 ML VIAL ONE (06:13)
[2017-02-03] MEDS ORDERED: PROPOFOL 200 MG/20 ML VIAL ONE (06:14)
[2017-02-03] MEDS ORDERED: ONDANSETRON 4 MG/2 ML VIAL ONE (06:14)
[2017-02-03] MEDS ORDERED: ROCURONIUM 50 MG/5 ML VIAL ONE (06:14)
[2017-02-03] MEDS ORDERED: ETOMIDATE 20 MG/10 ML VIAL ONE (06:14)
[2017-02-03] MEDS ORDERED: SUCCINYLCHOLINE CHLORIDE 200 MG/10 ML VIAL ONE (06:14)
[2017-02-03] MEDS ORDERED: ONDANSETRON DISINTEGRATING 4 MG TAB ONE (07:50)
[2017-02-03] MEDS ORDERED: CITRIC ACID/SODIUM CITRATE 30 ML UDCUP ONE (07:50)
[2017-02-03] MEDS: cloZAPine 100 MG TAB PO SCH (21:08)
[2017-02-03] MEDS: risperiDONE 2 MG TAB PO SCH (21:09)
[2017-02-03] MEDS: LITHIUM CARBONATE ER 450 MG TAB PO SCH (21:09)
[2017-02-03] MEDS: lamoTRIgine 100 MG TAB PO SCH (21:09)
--- NOTE | 2017-02-04 14:33 | SOAPPROG ---
SOAP Progress Note Assessment/Plan: Assessment: Plan: 01/27/17 08:06 Protracted alexandre persists. Will proceed with acute course ECT. 01/28/17 12:34 Improving. [facility] inc: acute course ECT. 01/29/17 16:05 Continued improvement. CCM. 01/30/17 17:33 Calmer. Tolerating ECT well. Will [facility], hope to keep pt in hospital through next week to insure stability. 02/04/17 14:32 Doing well with ECT. [facility]. Subjective: LATE ENTRY FOR 02/03/17. Pt seen, discussed with staff, chart reviewed. Doing well. Affect is bright. Behaviors are stable. No c/o's. Objective: Vital Signs Temp Pulse Resp BP Pulse Ox 36.8 C 88 12 92/51 L 100 02/04/17 06:00 02/04/17 06:00 02/04/17 06:00 02/04/17 06:00 02/04/17 06:00 MSE: Calm, coop. Affect is brighter, stable, approp. Mood is "good." TP generally linear. TC reveals no mention of psychosis. No SI. - Time Spent With Patient Time Spent With Patient: 25" ICD10 Worksheet Patient Problems: Problems Problem Status Onset Schizoaffective disorder Acute Psychosis Acute
--- NOTE | 2017-02-04 14:36 | SOAPPROG ---
SOAP Progress Note Assessment/Plan: Assessment: Plan: 01/27/17 08:06 Protracted alexandre persists. Will proceed with acute course ECT. 01/28/17 12:34 Improving. [facility] inc: acute course ECT. 01/29/17 16:05 Continued improvement. [facility]. 01/30/17 17:33 Calmer. Tolerating ECT well. Will [facility], hope to keep pt in hospital through next week to insure stability. 02/04/17 14:32 Doing well with ECT. [facility]. 02/04/17 14:35 Continued improvement. Remains somewhat concrete, blunted. Will [facility] inc: ECT. Subjective: Pt seen, discussed with staff. Reports feeling "really good." Continues to believe ECT has been helpful. Notes no SE's inc: no h/a. Mood continues to improve. Objective: Vital Signs Temp Pulse Resp BP Pulse Ox 36.8 C 88 12 92/51 L 100 02/04/17 06:00 02/04/17 06:00 02/04/17 06:00 02/04/17 06:00 02/04/17 06:00 MSE: Calm, coop. AFfect is bright, stable, approp. Mood is "good." TP linear. TC reveals no overt psychosis. - Time Spent With Patient Time Spent With Patient: 25" ICD10 Worksheet Patient Problems: Problems Problem Status Onset Schizoaffective disorder Acute Psychosis Acute
[2017-02-04] MEDS: lamoTRIgine 100 MG TAB PO SCH (21:18)
[2017-02-04] MEDS: LITHIUM CARBONATE ER 450 MG TAB PO SCH (21:18)
[2017-02-04] MEDS: risperiDONE 2 MG TAB PO SCH (21:24)
[2017-02-04] MEDS: cloZAPine 100 MG TAB PO SCH (21:24)
[2017-02-05] MEDS ORDERED: NS 1,000 ML IV ONE (05:00)
[2017-02-05] MEDS ORDERED: CITRIC ACID/SODIUM CITRATE 30 ML UDCUP PO ONE (05:00)
[2017-02-05] MEDS ORDERED: LIDOCAINE 2% 5 ML SDV ID ONE (05:00)
[2017-02-05] MEDS ORDERED: ONDANSETRON DISINTEGRATING 4 MG TAB PO ONE (05:00)
[2017-02-05] MEDS ORDERED: GLYCOPYRROLATE 0.2 MG/1 ML VIAL ONE (05:09)
[2017-02-05] MEDS ORDERED: MIDAZOLAM 2 MG/2 ML VIAL ONE (05:09)
[2017-02-05] MEDS ORDERED: KETOROLAC 30 MG/1 ML SDV ONE (05:09)
[2017-02-05] MEDS ORDERED: fentaNYL 100 MCG/2 ML INJ ONE (05:09)
[2017-02-05] MEDS ORDERED: ONDANSETRON 4 MG/2 ML VIAL ONE (05:10)
[2017-02-05] MEDS ORDERED: LIDOCAINE 2% 5 ML SDV ONE (05:10)
[2017-02-05] MEDS ORDERED: ETOMIDATE 20 MG/10 ML VIAL ONE (05:10)
[2017-02-05] MEDS ORDERED: ROCURONIUM 50 MG/5 ML VIAL ONE (05:10)
[2017-02-05] MEDS ORDERED: SUCCINYLCHOLINE CHLORIDE 200 MG/10 ML VIAL ONE (05:11)
[2017-02-05] MEDS ORDERED: PROPOFOL 200 MG/20 ML VIAL ONE (05:11)
[2017-02-05] MEDS ORDERED: ONDANSETRON DISINTEGRATING 4 MG TAB ONE (06:04)
[2017-02-05] MEDS ORDERED: CITRIC ACID/SODIUM CITRATE 30 ML UDCUP ONE (06:04)
--- NOTE | 2017-02-05 14:06 | SOAPPROG ---
[place] Progress Note Assessment/Plan: Assessment: Plan: 01/27/17 08:06 Protracted alexandre persists. Will proceed with acute course ECT. 01/28/17 12:34 Improving. [facility] inc: acute course ECT. 01/29/17 16:05 Continued improvement. CCM. 01/30/17 17:33 Calmer. Tolerating ECT well. Will [facility], hope to keep pt in hospital through next week to insure stability. 02/04/17 14:32 Doing well with ECT. [facility]. 02/04/17 14:35 Continued improvement. Remains somewhat concrete, blunted. Will [facility] inc: ECT. 02/05/17 14:06 Significant improvement with ECT. [facility]. Subjective: Pt seen, discussed with staff. Remains in good behavioral control. He continues to report improvement with ECT. Underwent RUL ECT this morning without complication. Pt was fairly subdued prior to treatment today, but mother continues to see him as manic. Staff notes significant acceleration in the evenings. Objective: Vital Signs Temp Pulse Resp BP Pulse Ox 36.4 C 104 H 12 124/83 H 93 02/05/17 07:41 02/05/17 07:41 02/05/17 07:41 02/05/17 07:41 02/05/17 07:41 MSE: Calm, coop. Affect is somewhat blunted, stable, approp. Mood is "good." TP generally linear. TC reveals no overt psychosis. - Time Spent With Patient Time Spent With Patient: 35" ICD10 Worksheet Patient Problems: Problems Problem Status Onset Psychosis Acute Schizoaffective disorder Acute
[2017-02-05] MEDS: lamoTRIgine 100 MG TAB PO SCH (20:06)
[2017-02-05] MEDS: risperiDONE 2 MG TAB PO SCH (20:06)
[2017-02-05] MEDS: LITHIUM CARBONATE ER 450 MG TAB PO SCH (20:06)
[2017-02-05] MEDS: cloZAPine 100 MG TAB PO SCH (20:06)
--- NOTE | 2017-02-06 16:26 | SOAPPROG ---
SOAP Progress Note Assessment/Plan: Assessment: Plan: 01/27/17 08:06 Protracted alexandre persists. Will proceed with acute course ECT. 01/28/17 12:34 Improving. [facility] inc: acute course ECT. 01/29/17 16:05 Continued improvement. [facility]. 01/30/17 17:33 Calmer. Tolerating ECT well. Will [facility], hope to keep pt in hospital through next week to insure stability. 02/04/17 14:32 Doing well with ECT. [facility]. 02/04/17 14:35 Continued improvement. Remains somewhat concrete, blunted. Will [facility] inc: ECT. 02/05/17 14:06 Significant improvement with ECT. [facility]. 02/06/17 16:26 Doing well. Will continue acute course ECT tomorrow, monitor. Likely d/c after treatment if all is well. Subjective: Pt seen, discussed with staff. Reports feeling "really good." Remains fairly aloof, sitting alone in day room most of the time. Cooperative and compliant with meds and most therapies, though doesn't participate in most groups. Objective: Vital Signs Temp Pulse Resp BP Pulse Ox 37.0 C 96 14 110/68 97 02/06/17 06:00 02/06/17 06:00 02/06/17 06:00 02/06/17 06:00 02/06/17 06:00 MSE: Calm, coop. Affect is euthymic, stable, approp. Mood is "good." TP linear, though remains abbreviated. TC reveals no evidence of psychosis. - Time Spent With Patient Time Spent With Patient: 25" ICD10 Worksheet Patient Problems: Problems Problem Status Onset Psychosis Acute Schizoaffective disorder Acute
[2017-02-06] MEDS: LITHIUM CARBONATE ER 450 MG TAB PO SCH (16:30)
[2017-02-06] MEDS: risperiDONE 2 MG TAB PO SCH (16:30)
[2017-02-06] MEDS: lamoTRIgine 100 MG TAB PO SCH (16:30)
[2017-02-06] MEDS: cloZAPine 100 MG TAB PO SCH (16:31)
[2017-02-07] MEDS ORDERED: CITRIC ACID/SODIUM CITRATE 30 ML UDCUP PO ONE (05:00)
[2017-02-07] MEDS ORDERED: NS 1,000 ML IV ONE (05:00)
[2017-02-07] MEDS ORDERED: LIDOCAINE 2% 5 ML SDV ID ONE (05:00)
[2017-02-07] MEDS ORDERED: ONDANSETRON DISINTEGRATING 4 MG TAB PO ONE (05:00)
[2017-02-07] MEDS ORDERED: ONDANSETRON 4 MG/2 ML VIAL ONE (05:22)
[2017-02-07] MEDS ORDERED: MIDAZOLAM 2 MG/2 ML VIAL ONE (05:22)
[2017-02-07] MEDS ORDERED: KETOROLAC 30 MG/1 ML SDV ONE (05:22)
[2017-02-07] MEDS ORDERED: fentaNYL 100 MCG/2 ML INJ ONE (05:22)
[2017-02-07] MEDS ORDERED: GLYCOPYRROLATE 0.2 MG/1 ML VIAL ONE (05:22)
[2017-02-07] MEDS ORDERED: SUCCINYLCHOLINE CHLORIDE 200 MG/10 ML VIAL ONE (05:23)
[2017-02-07] MEDS ORDERED: ETOMIDATE 20 MG/10 ML VIAL ONE (05:23)
[2017-02-07] MEDS ORDERED: PROPOFOL 200 MG/20 ML VIAL ONE (05:23)
[2017-02-07] MEDS ORDERED: ROCURONIUM 50 MG/5 ML VIAL ONE (05:23)
[2017-02-07] MEDS ORDERED: ONDANSETRON DISINTEGRATING 4 MG TAB ONE (06:32)
[2017-02-07] MEDS ORDERED: CITRIC ACID/SODIUM CITRATE 30 ML UDCUP ONE (06:32)
[2017-02-07 11:01] VITALS: RESP 14
[2017-02-07 11:06] VITALS: O2SAT 96
[2017-02-07 11:08] VITALS: BP 123/81; PULSE 96; TEMP 97.6
--- NOTE | 2017-02-07 17:08 | GDS ---
[f rep st] DISCHARGE SUMMARY REASON FOR ADMISSION: The patient is a 26-year-old male with a history of schizoaffective disorder. He was admitted from home after experiencing manic symptoms, including severe agitation an d impulsive behaviors such as taking his clothes off and running around the neighborhood naked. His mother felt he was unsafe to be at home, and we had already planned to begin outpatient ECT the [facility] Friday, and it was felt that he could do this in the hospital more safely. A full description o f the events preceding admission can be found in his admission history dated 01/25/2017, per Dr. Donya Wiley. ADMITTING DIAGNOSES: Per Dr. Wiley: 1. Schizoaffective disorder, bipolar type. 2. Psychosocial stressors including multiple family members with serious mental health problems. 3. Severe decompensation over the past year. 4. Disruption of daily routine. ADMITTING PHYSICAL EXAMINATION: Performed by Dr. Sterling Baptiste, revealed some superficial lacerati ons to his neck from shaving, though no other acute physical findings. ADMISSION LABORATORY: CBC was normal, with the exception of a platelet count slightly down at 132. Nonfasting glucose was up at 105. Serum chemistries were otherwise normal. Urine drug screen was ne gative for all substances. HOSPITAL COURSE: [facility]. He was pleasant and cooperative and participated actively in all therapies. He was interactive, tho ugh somewhat pressured and a little bit intrusive at the beginning, consistent with his previous jim c behavior. He did not disrobe or display any sexualized behaviors, however. He also displayed no a ggression. He participated actively in requested therapies and all evaluations and was compliant wit h all medications. The patient's home medications were continued, including his clozapine and Risper liliane. He tolerated these well with no side effects. No dose adjustments were made to his medicines d uring his stay, though I did discuss with mother the possibility that we could decrease some of these as we went along if the ECT was effective. The patient began acute course ECT on January 25. He received 6 total acute course right unilateral ultra brief pulsed treatments, which he tolerated quite well. He noticed subjective improvement fro m the beginning. He stated he felt calmer and his mood felt better, and staff noticed that he did ap pear to be calmer and less manic. His sleep stabilized and his behaviors calmed significantly. He w as calm and cooperative throughout his stay, and he began to withdraw a little bit toward the end of his stay, not participating in groups, because he states he had done the groups and already knew the material. He struggled to interact with others, though this appeared to be a longstanding issue for him. The patient's hospitalization was uncomplicated, he was caught calm and cooperative throughout, and w as compliant with all treatments. CONDITION ON DISCHARGE: Stable. His affect was euthymic, stable, and appropriate. He was sleeping through the night. Was compliant with his medicines. Was forward thinking. Was displaying no dysre gulation behaviors. DISCHARGE MEDICATIONS: [place] carbonate ER 900 mg q.h.s., clozapine 600 mg q.h.s., Lamictal 200 mg q.h.s., and Risperdal 2 mg q.h.s. DISCHARGE DIAGNOSES: 1. Schizoaffective disorder, bipolar type, chronic, with acute exacerbation. 2. Chronic illness. 3. Recurrent illness. 4. Protracted alexandre. 5. Acute alexandre with psychosis. 6. Dysregulated behaviors. DISPOSITION: The patient left the hospital with his mother to return to the family home. FOLLOWUP: Followup is with Dr. Mcdonough for medication management, as scheduled, and myself beginning on 02/11/2017 for continued acute course ECT for at least 3 more treatments for a total of 9. The yasir gonzalez's mother is aware of the schedule. LEGAL STATUS: The patient was placed on a short-term certification by Dr. Tejada at the expiration of his M1 hold due to Dr. Tejada's belief that the patient was equivocal about remaining in the hosp ital. He was cooperative and voicing a desire to participate throughout his stay, but due to his his tory of impulsivity, it was thought that he might change his mind, and the certification was utilized . The certification was discontinued at the time of his discharge. /[id number]/MODL
== END 2017-02-07 16:35 | disposition home or self-care (01) | DRG 885 ==
LOC: BBEH 20:40
PROVIDERS: ADMIT Psychiatry & Neurology Psychiatry; ATTEND Psychiatry & Neurology Psychiatry
DX: F25.0 Schizoaffective disorder, bipolar type (principal)
CPT/HCPCS: 80305; G0480; J0330; J1885; J2250; J2405; J2704; J3010